=== PATIENT | female | born 1995 | race Caucasian/White ===

== ENCOUNTER → 2017-08-23 | Outpatient (CLI) | payer OTHER ==
[2017-04-12 13:00] VITALS: BMI 42.1
[~2017-08-23] MED LIST: ACET-1966 PO; CALC-521 PO; FAMO20TA28 PO; IBUP800T37 PO; LOR5/325 PO; Nifedipine PO; PREN-127 PO
== END ==
LOC: LAB 13:10
PROVIDERS: ATTEND Surgery
DX: L98.0 Pyogenic granuloma (principal)
CPT/HCPCS: 88305

== ENCOUNTER 2018-10-24 22:50 | Emergency (ER) | payer OTHER ==
[2017-04-12 13:00] VITALS: Wt 106.6 kg
[~2018-10-24 22:50] MED LIST changes: +HYDR-653 PO; +ONDA4TAB PO
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
[2018-10-24 22:54] VITALS: BP 133/89
[2018-10-24] MEDS ORDERED: ONDANSETRON 4 MG ODT TABDP SL ONE (23:05)
[2018-10-24] MEDS ORDERED: ONDANSETRON 4 MG ODT TH SL ONE (23:05)
== END 2018-10-24 23:17 | disposition home or self-care (01) ==
LOC: ER 22:56
DX: S00.03XA Contusion of scalp, initial encounter (principal); S09.90XA Unspecified injury of head, initial encounter; R11.0 Nausea; W22.8XXA Striking against or struck by other objects, initial encounter; Y92.520 Airport as the place of occurrence of the external cause; Y99.0 Civilian activity done for income or pay
CPT/HCPCS: 99283; S0119

== ENCOUNTER 2019-01-23 19:53 | Emergency (ER) | payer SELFPAY ==
[2017-04-12 13:00] VITALS: Wt 106.6 kg
--- NOTE | 2019-01-23 19:56 | ER Report ---
History and Physical Time Seen By MD: 19:54 HPI/ROS CHIEF COMPLAINT: chest pain, diarrhea, vomiting HISTORY OF PRESENT ILLNESS: This is a 23 year old female. She has been feeling sick today. Has had diarrhea and vomiting since earlier today. Unable to keep things down. Started having chest pain, bilaterally, lower ribs, worse with breathing. Feeling very weak. No cough. Subjective fevers. No trouble urinating. No sick contacts. They were camping, but do not think any bad food or water exposure. Allergies: Coded Allergies: No Known Drug Allergies (Unverified , 10/24/18) Home Meds Active Scripts Promethazine Hcl (PROMETHAZINE HCL) 25 Mg Tablet, 25 MG PO Q8H PRN for NAUSEA/VOMITING, #20 TAB 0 Refills Prov:OLGA DAVEY MD 01/23/19 Ondansetron 4 Mg Odt (ONDANSETRON 4 MG ODT) 4 Mg Tab.rapdis, 4 MG PO Q6H PRN for NAUSEA/VOMITING, #20 TAB 0 Refills Prov:OLGA DAVEY MD 01/23/19 Hydrocodone Bit/Acetaminophen (HYDROCODON-ACETAMINOPHEN 5-325) 1 Each Tablet, 1 EACH PO Q4H PRN for PAIN, #12 TAB 0 Refills Prov:OLGA DAVEY MD 01/23/19 Reviewed Nurses Notes: Yes Hx Smoking: No Smoking Status: Never Smoker Exposure to Second Hand Smoke?: No Constitutional Vital Sign - Last 24 Hours 01/23/19 01/23/19 01/23/19 01/23/19 19:53 19:55 19:59 20:15 Temp 98.1 Pulse ??? 88 Resp 18 B/P (MAP) 141/66 (91) 141/66 133/111 (118) Pulse Ox 96 O2 Delivery Room Air 01/23/19 01/23/19 01/23/19 01/23/19 20:23 20:30 20:45 20:53 Pulse 71 ??? Resp 15 14 B/P (MAP) 128/88 (101) 120/82 (95) Pulse Ox 99 01/23/19 01/23/19 01/23/19 01/23/19 21:00 21:15 21:23 21:30 Pulse 70 Resp 15 B/P (MAP) 113/66 (82) 123/74 (90) 126/88 (101) Pulse Ox 100 01/23/19 01/23/19 01/23/19 01/23/19 21:45 21:50 22:00 22:15 Pulse 73 Resp 16 B/P (MAP) 102/77 (85) 111/71 (84) 117/74 (88) Pulse Ox 99 01/23/19 22:20 Pulse 68 Resp 16 Pulse Ox 100 Intake and Output 01/23/19 01/23/19 01/24/19 15:02 23:02 07:02 Intake Total 1000 ml Balance 1000 ml Physical Exam General Appearance: The patient is alert. No acute distress. Eyes: Pupils are equal, round. No pallor, injection or icterus. ENT: Mucous membranes are moist. Normal oral mucosa. Posterior oropharynx is normal. Neck: Supple and non tender. Respiratory: Lungs are clear to auscultation. Pain with deep breaths. Cardiovascular: Regular rate and rhythm. No murmurs, gallops or rubs. Normal capillary refill. No edema. Gastrointestinal: Abdomen with discomfort throughout, worse upper abdomen. Nondistended. No rebound or guarding. Normal active bowel sounds. No costovertebral angle tenderness with percussion. Neurological: Alert and oriented x3. No focal neurologic deficits Skin: Warm and dry. DIFFERENTIAL DIAGNOSIS: After history and physical exam, differential diagnosis was considered for a patient with multiple symptoms of gastrointestinal vomiting and diarrhea, with some bilateral pleuritic type chest pain. Vital signs are stable. Medical Decision Making Data Points Result Diagram: 01/23/19195801/23/191958 Laboratory Hematology Test 01/23/19 19:59 White Blood Count 9.5 k/uL (4.5-11.0) Red Blood Count 6.00 M/uL (4.17-5.56) H Hemoglobin 17.0 g/dL (12.0-16.0) H Hematocrit 49.2 % (34.0-47.0) H Mean Corpuscular Volume 82.0 fL (80.0-96.0) Mean Corpuscular Hemoglobin 28.4 pg (26.0-33.0) Mean Corpuscular Hemoglobin Concent 34.6 g/dL (32.0-36.0) Red Cell Distribution Width 13.3 % (11.5-14.5) Platelet Count 325 K/uL (150-450) Mean Platelet Volume 8.4 fL (7.2-11.1) Neutrophils (%) (Auto) 51.7 % (39.4-72.5) Lymphocytes (%) (Auto) 37.6 % (17.6-49.6) Monocytes (%) (Auto) 6.7 % (4.1-12.4) Eosinophils (%) (Auto) 3.6 % (0.4-6.7) Basophils (%) (Auto) 0.4 % (0.3-1.4) Nucleated RBC Relative Count (auto) 0.2 /100WBC Neutrophils # (Auto) 4.9 K/uL (2.0-7.4) Lymphocytes # (Auto) 3.6 K/uL (1.3-3.6) Monocytes # (Auto) 0.6 K/uL (0.3-1.0) Eosinophils # (Auto) 0.3 K/uL (0.0-0.5) Basophils # (Auto) 0.0 K/uL (0.0-0.1) Nucleated RBC Absolute Count (auto) 0.02 K/uL Chemistry Test 01/23/19 19:59 Sodium Level 143 mmol/L (137-145) Potassium Level 3.5 mmol/L (3.5-5.0) Chloride Level 103 mmol/L (98-107) Carbon Dioxide Level 22 mmol/L (22-31) Blood Urea Nitrogen 12 mg/dl (7-18) Creatinine 0.90 mg/dl (0.52-1.04) Glomerular Filtration Rate Calc > 60.0 Random Glucose 107 mg/dl (75-110) Calcium Level 9.6 mg/dl (8.4-10.2) Total Bilirubin 1.1 mg/dl (0.2-1.3) Aspartate Amino Transf (AST/SGOT) 64 U/L (0-35) Alanine Aminotransferase (ALT/SGPT) 54 U/L (0-56) Alkaline Phosphatase 69 U/L (0-126) Troponin I < 0.012 ng/ml B-Type Natriuretic Peptide < 5 pg/ml (0-100) Total Protein 9.3 g/dl (6.3-8.2) Albumin 4.9 g/dl (3.5-5.0) Human Chorionic Gonadotropin, Qual Negative (NEGATIVE) Coagulation Test 01/23/19 19:59 D-Dimer Quantitative (PE/DVT) 0.35 ug/ml (0-0.50) EKG/Imaging EKG Interpretation 12 lead EKG: Rhythm: Normal sinus rhythm, rate 84 [place]: normal QRS: normal ST segments: Nonspecific T-wave changes, no ST elevation or depression Imaging EXAMINATION: Portable AP Chest HISTORY: Chest pain. COMPARISON: None. FINDINGS: The lungs are clear. No focal consolidation or pleural effusion. No pneumothorax. Normal cardiomediastinal silhouette, with normal heart size and pulmonary vascularity. Visualized osseous structures are unremarkable. IMPRESSION: No evidence of acute cardiopulmonary disease. Report Dictated By: Will Angulo MD at 01/23/2019 8:34 PM ED Course/Re-evaluation Clinical Indication for ER IV: Hydration, IV Access ED Course Patient given IV fluids and zofran. She took aspirin prior to arrival. EKG nonspecific but no acute ischemic changes. Appears stable, and likely viral syndrome. Later with further nausea. Given Phenergan with good improvement. See instructions. Negative troponin. Decision to Disposition Date: Jan 23, 2019 Decision to Disposition Time: 22:31 Depart Departure Latest Vital Signs Vital Signs Date Time Temp Pulse Resp B/P (MAP) Pulse Ox O2 Delivery O2 Flow Rate FiO2 01/23/19 22:20 68 16 100 01/23/19 22:15 117/74 (88) 01/23/19 19:59 98.1 Room Air Impression: Primary Impression: Viral syndrome Additional Impression: Pleuritic chest pain Condition: Improved Disposition: HOME OR SELF-CARE New Scripts Promethazine Hcl (PROMETHAZINE HCL) 25 Mg Tablet 25 MG PO Q8H PRN for NAUSEA/VOMITING, #20 TAB 0 Refills Prov: OLGA DAVEY MD 01/23/19 Ondansetron 4 Mg Odt (ONDANSETRON 4 MG ODT) 4 Mg Tab.rapdis 4 MG PO Q6H PRN for NAUSEA/VOMITING, #20 TAB 0 Refills Prov: OLGA DAVEY MD 01/23/19 Hydrocodone Bit/Acetaminophen (HYDROCODON-ACETAMINOPHEN 5-325) 1 Each Tablet 1 EACH PO Q4H PRN for PAIN, #12 TAB 0 Refills Prov: OLGA DAVEY MD 01/23/19 Patient Instructions: Viral Syndrome (ED) Additional Instructions: Your symptoms are likely caused by a viral infection, but could be from exposure to bad food or food poisoning. We did not find any problems with your heart, any problems with lungs, or any sign of blood clots. We recommend rest and hydration for the next few days. Lortab 5/325, one every 4 hours as needed for pain. Ibuprofen 200mg over the counter tablets, 4 tablets every 8 hours as needed fo rpain. Zofran 4mg, one every 6 hours as needed for nausea or vomiting. You can also use Phenergan 25mg, one every 6 hours as needed for nausea or vomiting. Problem Qualifiers OLGA DAVEY MD Jan 23, 2019 19:56
[2019-01-23] MEDS ORDERED: NS(*) 0.9% 1000 ML BAG 1,000 ML IV ONE (20:03)
[2019-01-23] MEDS ORDERED: ONDANSETRON 4 MG/2 ML VIAL IVP ONE (20:05)
[2019-01-23] MEDS ORDERED: ASPIRIN 81 MG CHEW PO ONE (20:05)
--- NOTE | 2019-01-23 20:08 | EKG ---
[place]AC[place] [facility] [place]IENT NAME: ANDRZEJ WAGNER : [id number] MR: [id number] V: [id number] EXAM DATE: ORDERING PHYSICIAN: OLGA DAVEY TECHNOLOGIST: YARI Test Reason : CP, SOB Blood Pressure : / mmHG Vent. Rate : 084 BPM Atrial Rate : 084 BPM P-R Int : 164 ms QRS Dur : 098 ms QT Int : 386 ms P-R-T Axes : 001 103 027 degrees QTc Int : 456 ms Normal sinus rhythm Nonspecific T wave abnormality in V 1-4 consistent with age. Right axis deviation. Borderline QTc. No previous ECGs available Confirmed by KIMBERLEE LIEBERMAN ([id number]) on 01/23/2019 10:58:19 PM Referred By: Confirmed By:KIMBERLEE LIEBERMAN
[2019-01-23 20:15] LABS: PLATELET COUNT, AUTOMATED 325 K/uL (150-450)
--- NOTE | 2019-01-23 20:41 | RADIOLOGY IMAGING REPORT ---
[place] [facility] [place] Selvin [place] : 1995 MR: [id number] V: [id number] EXAM DATE: ORDERING PHYSICIAN: OLGA DAVEY TECHNOLOGIST: Location: [facility] - [place] Patient: Selvin Lee : 1995 Visit/Account:[id number] Date of Sevice: 01/23/2019 EXAMINATION: Portable AP Chest HISTORY: Chest pain. COMPARISON: None. FINDINGS: The lungs are clear. No focal consolidation or pleural effusion. No pneumothorax. Normal cardiomedi astinal silhouette, with normal heart size and pulmonary vascularity. Visualized osseous structures are unremarkable. IMPRESSION: No evidence of acute cardiopulmonary disease. Report Dictated By: Will Angulo MD at 01/23/2019 8:34 PM Report E-Signed By: Will Angulo MD at 01/23/2019 8:35 PM WSN:[id number]
[2019-01-23] MEDS ORDERED: PROMETHAZINE 25 MG/ML 1 ML AMP IVP ONE (21:00)
[2019-01-23 22:15] VITALS: BP 117/74
[2019-01-23] MEDS ORDERED: LOR5/325 PO (22:37)
[2019-01-23] MEDS ORDERED: ONDA4TAB9 PO (22:37)
[2019-01-23] MEDS ORDERED: PROM-110 PO (22:37)
[2019-01-23] MEDS ORDERED: PROMETHAZINE HCL 25 MG TAB TH 2 TAB/BOTTLE PO ONE (22:40)
[2019-01-23] MEDS ORDERED: ONDANSETRON 4 MG ODT TH SL ONE (22:40)
[2019-01-23] MEDS ORDERED: ACET/HYDROC 5/325MG TH ER ONLY 2 TAB/BOTTLE PO ONE (22:40)
== END 2019-01-23 22:55 | disposition home or self-care (01) ==
LOC: ER 20:14
DX: B34.9 Viral infection, unspecified (principal); R09.1 Pleurisy
CPT/HCPCS: 71045; 83880; 84484; 84703; 85025; 85379; 93005; 96361; 96374; 96375; 99284; J2405; J2550; J7030; S0119; 82040; 82247; 82310; 82374; 82435; 82565; 82947; 84075; 84132; 84155; 84295; 84450; 84460; 84520